=== PATIENT | female | born 1995 | race Caucasian/White ===

== ENCOUNTER 2022-06-26 10:52 | Emergency (ER) | payer OTHER ==
[~2022-06-26] VITALS: Ht 160 cm; Wt 62.6 kg
[~2022-06-26 10:52] MED LIST: BACTRIM DS 8001 TA1 PO; CITRACAL LIQUI500 MG; COLACE-T100 MG PO; FLOMAX0.4 MG PO; MOTRIN800 MG PO; NORCO 325 MG-51 TAB PO; PRENATAL PLUS1 TA2 PO; PRILOSEC20 MG PO; Zofran4 MG PO
[2022-06-26 11:01] VITALS: BP 113/67
== END 2022-06-26 12:35 | disposition home or self-care (01) ==
LOC: ED 10:52
DX: S90.112A Contusion of left great toe without damage to nail, initial encounter (principal); W20.8XXA Other cause of strike by thrown, projected or falling object, initial encounter; Y93.89 Activity, other specified; Y92.89 Other specified places as the place of occurrence of the external cause; Y99.8 Other external cause status